=== PATIENT | male | born 1970 | race Caucasian/White ===

== ENCOUNTER 2017-08-28 02:06 | Emergency (ER) | payer OTHER ==
[~2017-08-28] VITALS: Ht 182.9 cm; Wt 68.0 kg
[2017-08-28 02:43] VITALS: BP 151/80
== END 2017-08-28 02:51 | disposition home or self-care (01) | DRG 605 ==
LOC: ED 02:06
DX: S81.811A Laceration without foreign body, right lower leg, initial encounter (principal); W27.8XXA Contact with other nonpowered hand tool, initial encounter; Y93.89 Activity, other specified; Y92.009 Unspecified place in unspecified non-institutional (private) residence as the place of occurrence of the external cause

== ENCOUNTER 2018-06-06 21:13 | Emergency (ER) | payer OTHER ==
[~2018-06-06] VITALS: Ht 182.9 cm; Wt 71.6 kg
[2018-06-06] MEDS ORDERED: SILDENAFIL20 MG PO (21:31)
[2018-06-06] MEDS ORDERED: SILDENAFIL CITR20 M1 PO (21:32)
[2018-06-06] MEDS ORDERED: BACTRIM DS1 TAB PO (21:50)
[2018-06-06 21:53] VITALS: BP 143/99
== END 2018-06-06 22:05 | disposition home or self-care (01) ==
LOC: ED 21:13
DX: L02.416 Cutaneous abscess of left lower limb (principal); F17.210 Nicotine dependence, cigarettes, uncomplicated

== ENCOUNTER 2018-06-08 20:22 | Emergency (ER) | payer OTHER ==
[~2018-06-08] VITALS: Ht 182.9 cm; Wt 70.4 kg
[~2018-06-08 20:22] MED LIST: BACTRIM DS1 TAB PO; SILDENAFIL CITR20 M1 PO; SILDENAFIL20 MG PO
[2018-06-08 20:51] VITALS: BP 132/82
== END 2018-06-08 21:07 | disposition home or self-care (01) ==
LOC: ED 20:22
DX: Z48.01 Encounter for change or removal of surgical wound dressing (principal); F17.210 Nicotine dependence, cigarettes, uncomplicated

== ENCOUNTER 2018-08-07 18:53 | Emergency (ER) | payer OTHER ==
[~2018-08-07] VITALS: Ht 182.9 cm; Wt 66.0 kg
[2018-08-07] MEDS ORDERED: KEFLEX500 MG PO (19:20)
[2018-08-07 19:25] VITALS: BP 129/87
== END 2018-08-07 19:31 | disposition home or self-care (01) | DRG 603 ==
LOC: ED 18:53
DX: L02.413 Cutaneous abscess of right upper limb (principal); F17.200 Nicotine dependence, unspecified, uncomplicated

== ENCOUNTER 2018-08-09 19:20 | Emergency (ER) | payer OTHER ==
[~2018-08-09] VITALS: Ht 182.9 cm; Wt 66.0 kg
[~2018-08-09 19:20] MED LIST changes: +KEFLEX500 MG PO
[2018-08-09] MEDS ORDERED: BACTRIM DS1 TAB PO (20:03)
[2018-08-09] MEDS ORDERED: PERCOCET 5/325M1 TAB PO (20:03)
[2018-08-09 20:20] VITALS: BP 139/90
== END 2018-08-09 20:25 | disposition home or self-care (01) ==
LOC: ED 19:20
DX: L02.413 Cutaneous abscess of right upper limb (principal); B95.62 Methicillin resistant Staphylococcus aureus infection as the cause of diseases classified elsewhere; F17.210 Nicotine dependence, cigarettes, uncomplicated

== ENCOUNTER 2018-08-10 17:44 | Emergency (ER) | payer OTHER ==
[~2018-08-10] VITALS: Ht 182.9 cm; Wt 65.0 kg
[~2018-08-10 17:44] MED LIST changes: +PERCOCET 5/325M1 TAB PO
[2018-08-10 18:57] VITALS: BP 121/77
== END 2018-08-10 19:01 | disposition home or self-care (01) ==
LOC: ED 17:44
DX: Z48.01 Encounter for change or removal of surgical wound dressing (principal); F17.210 Nicotine dependence, cigarettes, uncomplicated

== ENCOUNTER 2018-08-12 20:55 | Emergency (ER) | payer OTHER ==
[~2018-08-12] VITALS: Ht 188 cm; Wt 68.2 kg
[2018-08-12] MEDS ORDERED: BACTRIM DS1 TAB PO (21:25)
[2018-08-12] MEDS ORDERED: CLEOCIN300 MG PO (21:25)
[2018-08-12] MEDS ORDERED: LORTAB 1010 MG PO (21:25)
[2018-08-12 21:30] VITALS: BP 134/96
== END 2018-08-12 21:30 | disposition home or self-care (01) ==
LOC: ED 20:55
DX: L02.413 Cutaneous abscess of right upper limb (principal); Z48.01 Encounter for change or removal of surgical wound dressing

== ENCOUNTER 2018-08-14 18:41 | Emergency (ER) | payer SELFPAY ==
[~2018-08-14] VITALS: Ht 188 cm; Wt 65.0 kg
[~2018-08-14 18:41] MED LIST changes: +CLEOCIN300 MG PO; +LORTAB 1010 MG PO
[2018-08-14 19:45] VITALS: BP 111/68
== END 2018-08-14 19:45 | disposition home or self-care (01) | DRG 951 ==
LOC: ED 18:41
DX: Z48.01 Encounter for change or removal of surgical wound dressing (principal); F17.210 Nicotine dependence, cigarettes, uncomplicated

== ENCOUNTER 2020-09-30 20:11 | Emergency (ER) | payer OTHER ==
[~2020-09-30] VITALS: Ht 188 cm; Wt 73.0 kg
[2020-09-30 20:59] VITALS: BP 163/97
[2020-09-30] MEDS ORDERED: BACTRIM DS1 TAB PO (21:02)
[2020-09-30] MEDS ORDERED: IBUPROFEN600 MG PO (21:02)
[2020-09-30] MEDS ORDERED: KEFLEX500 MG PO (21:02)
== END 2020-09-30 21:18 | disposition home or self-care (01) ==
LOC: ED 20:11
DX: L73.9 Follicular disorder, unspecified (principal); L03.115 Cellulitis of right lower limb; S71.111A Laceration without foreign body, right thigh, initial encounter; F17.210 Nicotine dependence, cigarettes, uncomplicated; X58.XXXA Exposure to other specified factors, initial encounter

== ENCOUNTER 2021-04-11 01:21 | Emergency (ER) | payer OTHER ==
[~2021-04-11] VITALS: Ht 188 cm; Wt 100.0 kg
[~2021-04-11 01:21] MED LIST changes: +IBUPROFEN600 MG PO
[2021-04-11 02:18] LABS: HEMATOCRIT 39.3 % (39.0-50.0); HEMOGLOBIN 12.6 g/dl (14.0-18.0); IMMATURE GRANULOCYTES 0.1 % (0.0-5.0); MEAN CELL VOLUME 90.8 fL CALC (80.0-100.0); MEAN CORPUSCULAR HGB 29.1 pG CALC (26.0-32.0); MEAN CORPUSCULAR HGB CONC 32.1 g/dL CAL (32.0-36.0); NEUT# 5.16 thou/uL (1.82-7.42); RED BLOOD COUNT 4.33 mill/uL (4.70-6.10); RED CELL DISTRI WIDTH 12.5 % (11.5-15.5)
[2021-04-11] MEDS ORDERED: BACTRIM DS1 TAB PO (02:25)
[2021-04-11] MEDS ORDERED: KEFLEX500 MG PO (02:25)
[2021-04-11 02:36] LABS: ALKALINE PHOSPHATASE 52 u/l (38-126); ANION GAP 13 (6-22 (CALC)); BILIRUBIN, TOTAL 0.1 mg/dL (0.0-1.4); BUN 24 mg/dL (9-20); BUN/CREATININE RATIO 22 (12-20 (CALC)); CARBON DIOXIDE 26 mmol/l (22-30); CHLORIDE 104 mmol/l (95-108); CREATININE 1.1 mg/dL (0.7-1.3); GFR > 60 ML/MIN (>=60 (CALC)); GFR FOR AFR.AMER. > 60 ML/MIN (>=60 (CALC)); POTASSIUM 4.3 mmol/l (3.5-5.1); SGOT/AST 26 u/l (17-59); SODIUM 138 mmol/l (137-146); TOTAL PROTEIN 6.9 g/dL (6.3-8.2)
[2021-04-11 02:51] VITALS: BP 135/84
== END 2021-04-11 02:51 | disposition home or self-care (01) ==
LOC: ED 01:21
PROVIDERS: Emergency Medicine
DX: L03.115 Cellulitis of right lower limb (principal); S80.261A Insect bite (nonvenomous), right knee, initial encounter; F17.210 Nicotine dependence, cigarettes, uncomplicated; W57.XXXA Bitten or stung by nonvenomous insect and other nonvenomous arthropods, initial encounter

== ENCOUNTER 2022-04-10 23:59 | Emergency (ER) | payer OTHER ==
[~2022-04-10] VITALS: Ht 188 cm; Wt 70.4 kg
[2022-04-11] VITALS (10 sets, daily range): BP systolic 158–184; BP diastolic 96–115
[2022-04-11 02:59] LABS: HEMATOCRIT 38.7 % (39.0-50.0); HEMOGLOBIN 12.8 g/dl (14.0-18.0); IMMATURE GRANULOCYTES 0.2 % (0.0-5.0); MEAN CELL VOLUME 90.2 fL CALC (80.0-100.0); MEAN CORPUSCULAR HGB 29.8 pG CALC (26.0-32.0); MEAN CORPUSCULAR HGB CONC 33.1 g/dL CAL (32.0-36.0); NEUT# 8.95 thou/uL (1.82-7.42); RED BLOOD COUNT 4.29 mill/uL (4.70-6.10)
[2022-04-11 03:11] LABS: ALKALINE PHOSPHATASE 61 u/l (38-126); ANION GAP 9 (6-22 (CALC)); BUN 16 mg/dL (9-20); BUN/CREATININE RATIO 18 (12-20 (CALC)); CARBON DIOXIDE 27 mmol/l (22-30); CHLORIDE 107 mmol/l (95-108); CREATININE 0.9 mg/dL (0.7-1.3); GFR FOR AFR.AMER. > 60 ML/MIN (>=60 (CALC)); GFR OTHER RACES > 60 ML/MIN (>=60 (CALC)); POTASSIUM 4.1 mmol/l (3.5-5.1); SGOT/AST 22 u/l (17-59); SODIUM 139 mmol/l (137-146); TOTAL PROTEIN 6.7 g/dL (6.3-8.2)
[2022-04-11 03:12] LABS: BILIRUBIN, TOTAL 0.3 mg/dL (0.0-1.4)
[2022-04-11] MEDS ORDERED: BACTRIM DS1 TAB PO (03:42)
[2022-04-11] MEDS ORDERED: LORTAB 1010 MG PO ×2 (03:42→23:49)
[2022-04-11] MEDS ORDERED: KEFLEX500 MG PO (03:42)
== END 2022-04-11 03:50 | disposition home or self-care (01) ==
LOC: ED 23:59
PROVIDERS: Emergency Medicine
DX: L02.811 Cutaneous abscess of head [any part, except face] (principal); I10 Essential (primary) hypertension; B95.61 Methicillin susceptible Staphylococcus aureus infection as the cause of diseases classified elsewhere; F17.210 Nicotine dependence, cigarettes, uncomplicated; Z48.01 Encounter for change or removal of surgical wound dressing; F17.200 Nicotine dependence, unspecified, uncomplicated

== ENCOUNTER 2022-04-13 22:59 | Emergency (ER) | payer OTHER ==
[~2022-04-13] VITALS: Ht 188 cm; Wt 70.0 kg
[2022-04-13 23:05] VITALS: BP 172/97
[2022-04-13 23:15] VITALS: BP 136/87
[2022-04-13 23:30] VITALS: BP 123/85
[2022-04-13 23:45] VITALS: BP 142/91
[2022-04-13 23:49] VITALS: BP 142/91
== END 2022-04-13 23:52 | disposition home or self-care (01) ==
LOC: ED 22:59
DX: Z48.01 Encounter for change or removal of surgical wound dressing (principal); F17.210 Nicotine dependence, cigarettes, uncomplicated

== ENCOUNTER 2022-04-15 22:41 | Emergency (ER) | payer OTHER ==
[~2022-04-15] VITALS: Ht 188 cm; Wt 71.0 kg
[2022-04-16 01:20] VITALS: BP 166/102
== END 2022-04-16 01:20 | disposition home or self-care (01) ==
LOC: ED 22:41
DX: Z48.01 Encounter for change or removal of surgical wound dressing (principal); F17.200 Nicotine dependence, unspecified, uncomplicated